=== PATIENT | female | born 1965 | race Caucasian/White ===

== ENCOUNTER 2022-01-30 04:05 | Emergency (ER) | payer SELFPAY ==
[~2022-01-30] VITALS: Ht 165.1 cm; Wt 125.0 kg
[2022-01-30 04:17] VITALS: BP 170/102
[2022-01-30] MEDS ORDERED: SYNTHROID150 MCG PO (04:33)
[2022-01-30] MEDS ORDERED: [UNRECOGNIZED DRUG - REMARK] (04:34)
[2022-01-30 04:39] VITALS: BP 184/90
[2022-01-30 05:05] LABS: URINE BILIRUBIN - DIPSTICK NEGATIVE (NEGATIVE); URINE BLOOD DIPSTICK SMALL (NEGATIVE); URINE COLOR YELLOW; URINE GLUCOSE - DIPSTICK NEGATIVE (NEGATIVE); URINE KETONE NEGATIVE (NEGATIVE); URINE PH 6.5 (4.5-8.0); URINE PROTEIN - DIPSTICK NEGATIVE (NEG-TRACE); URINE SPECIFIC GRAVITY 1.015; URINE UROBILINOGEN - DIPSTICK 0.2 E.U./dL (0.2)
[2022-01-30 05:12] LABS: URINE NITRITE - DIPSTICK NEGATIVE (Negative)
[2022-01-30 05:23] LABS: HEMATOCRIT 44.3 % (37.0-47.0); HEMOGLOBIN 14.4 g/dl (12.0-16.0); IMMATURE GRANULOCYTES 0.1 % (0.0-5.0); MEAN CELL VOLUME 97.4 fL CALC (80.0-100.0); MEAN CORPUSCULAR HGB 31.6 pG CALC (26.0-32.0); MEAN CORPUSCULAR HGB CONC 32.5 g/dL CAL (32.0-36.0); NEUT# 6.06 thou/uL (2.00-7.15); RED BLOOD COUNT 4.55 mill/uL (4.20-5.60)
[2022-01-30 05:34] LABS: URINE BACTERIA FEW hpf; URINE EPITHELIAL CELLS MODERATE EPI/hpf (0-FEW); URINE LEUK ESTERASE NEGATIVE (NEGATIVE)
[2022-01-30 05:51] LABS: ALBUMIN 4.2 g/dL (3.2-5.0); ALKALINE PHOSPHATASE 82 u/l (38-126); AMYLASE 57 u/l (30-110); ANION GAP 11 (6-22 (CALC)); BILIRUBIN, TOTAL 0.8 mg/dL (0.0-1.4); BUN 8 mg/dL (7-17); BUN/CREATININE RATIO 14 (12-20 (CALC)); CARBON DIOXIDE 24 mmol/l (22-30); CHLORIDE 107 mmol/l (95-108); CREATININE 0.6 mg/dL (0.5-1.0); GFR FOR AFR.AMER. > 60 ML/MIN (>=60 (CALC)); GFR OTHER RACES > 60 ML/MIN (>=60 (CALC)); LIPASE 106 u/l (23-300); POTASSIUM 3.8 mmol/l (3.5-5.1); SGOT/AST 25 u/l (14-36); SODIUM 139 mmol/l (137-146); TOTAL PROTEIN 7.2 g/dL (6.3-8.2)
[2022-01-30 06:02] LABS: MYOGLOBIN 47 ng/mL (0 - 62)
[2022-01-30 06:26] VITALS: BP 140/80
[2022-01-30 06:30] VITALS: BP 152/88
[2022-01-30] MEDS ORDERED: CEPHALEXIN500 M1 PO (08:01)
[2022-01-30 08:33] VITALS: BP 152/88
== END 2022-01-30 08:40 | disposition home or self-care (01) | DRG 645 ==
LOC: ED 04:05
PROVIDERS: Emergency Medicine
DX: E27.8 Other specified disorders of adrenal gland (principal); R31.9 Hematuria, unspecified; I10 Essential (primary) hypertension; F32.A Depression, unspecified; Z98.84 Bariatric surgery status; Z20.822 Contact with and (suspected) exposure to COVID-19
CPT/HCPCS: Q9967

== ENCOUNTER 2022-06-12 09:21 | Emergency (ER) | payer OTHER ==
[~2022-06-12] VITALS: Ht 167.6 cm; Wt 118.0 kg
[~2022-06-12 09:21] MED LIST: CEPHALEXIN500 M1 PO; SYNTHROID150 MCG PO; [UNRECOGNIZED DRUG - REMARK]
[2022-06-12] MEDS ORDERED: ZOLOFT25 MG PO (09:40)
[2022-06-12] MEDS ORDERED: CEPHALEXIN500 M1 PO (10:11)
[2022-06-12 10:15] VITALS: BP 165/70
== END 2022-06-12 10:21 | disposition home or self-care (01) | DRG 605 ==
LOC: ED 09:21
PROC: 0HQEXZZ Repair Left Lower Arm Skin, External Approach (ICD-10-PCS; principal; 2022-06-12)
DX: S61.512A Laceration without foreign body of left wrist, initial encounter (principal); W18.30XA Fall on same level, unspecified, initial encounter; Y93.89 Activity, other specified; Y92.89 Other specified places as the place of occurrence of the external cause; Y99.0 Civilian activity done for income or pay

== ENCOUNTER 2022-06-22 10:09 | Emergency (ER) | payer OTHER ==
[~2022-06-22] VITALS: Ht 167.6 cm; Wt 118.0 kg
[~2022-06-22 10:09] MED LIST changes: +ZOLOFT25 MG PO
[2022-06-22 11:04] VITALS: BP 141/75
== END 2022-06-22 11:06 | disposition home or self-care (01) | DRG 950 ==
LOC: ED 10:09
DX: S41.112D Laceration without foreign body of left upper arm, subsequent encounter (principal); X58.XXXD Exposure to other specified factors, subsequent encounter

== ENCOUNTER 2023-01-13 13:02 | Emergency (ER) | payer OTHER ==
[~2023-01-13] VITALS: Ht 167.6 cm; Wt 113.4 kg
[2023-01-13] VITALS (20 sets, daily range): BP systolic 57–135; BP diastolic 42–90
[2023-01-13 13:59] LABS: BASO% 0.1 % (0-3); HEMATOCRIT 47.3 % (37.0-47.0); HEMOGLOBIN 15.5 g/dl (12.0-16.0); IMMATURE GRANULOCYTES 0.1 % (0.0-5.0); LYMPH% 6.2 % (15-41); MEAN CELL VOLUME 95.4 fL CALC (80.0-100.0); MEAN CORPUSCULAR HGB 31.3 pG CALC (26.0-32.0); MEAN CORPUSCULAR HGB CONC 32.8 g/dL CAL (32.0-36.0); MONO% 6.8 % (2-13); NEUT# 7.13 thou/uL (2.00-7.15); NEUT% 86.8 % (42-76); RED BLOOD COUNT 4.96 mill/uL (4.20-5.60); RED CELL DISTRI WIDTH 12.9 % (11.5-15.5)
[2023-01-13 14:16] LABS: ALBUMIN 4.4 g/dL (3.2-5.0); ALKALINE PHOSPHATASE 73 u/l (38-126); ANION GAP 15 (6-22 (CALC)); BILIRUBIN, TOTAL 0.5 mg/dL (0.02-1.3); BUN 16 mg/dL (7-17); BUN/CREATININE RATIO 22 (12-20 (CALC)); CARBON DIOXIDE 21 mmol/l (22-30); CHLORIDE 104 mmol/l (95-108); CREATININE 0.7 mg/dL (0.5-1.0); GFR FOR AFR.AMER. > 60 ML/MIN (>=60 (CALC)); GFR OTHER RACES > 60 ML/MIN (>=60 (CALC)); LIPASE 79 u/l (23-300); POTASSIUM 3.1 mmol/l (3.5-5.1); SGOT/AST 24 u/l (14-36); SODIUM 137 mmol/l (137-146); TOTAL PROTEIN 7.2 g/dL (6.3-8.2)
[2023-01-13] MEDS ORDERED: ZITHROMAX Z-PA250 MG PO (17:39)
[2023-01-13] MEDS ORDERED: POTASSIUM CHLO20 ME1 PO (17:42)
[2023-01-13] MEDS ORDERED: ZOFRAN4 MG/TAB PO (17:42)
== END 2023-01-13 18:00 | disposition home or self-care (01) | DRG 373 ==
LOC: ED 13:02
PROVIDERS: Family Medicine
DX: A04.5 Campylobacter enteritis (principal); F32.A Depression, unspecified; Z98.84 Bariatric surgery status
CPT/HCPCS: Q9967